=== PATIENT | female | born 1990 | race Hispanic/Latino ===

== ENCOUNTER → 2021-06-01 | Day surgery (SDC) | payer SELFPAY ==
[~2021-06-01] MED LIST: Acetaminophen 500 MG TAB ONE; Acetaminophen 500 MG TAB PO SCH; BAMLANIVIMAB 700 MG, ETESEVIMAB 700 MG/20 ML 1,400 MG in Sodium Chloride 0.9% 250 ML 25... IVPB SCH; diphenhydrAMINE 50 MG/ML VIAL IVP SCH; diphenhydrAMINE 50 MG/ML VIAL ONE
== END ==
LOC: CSHSDC/OP 11:10
PROVIDERS: ATTEND Emergency Medicine
DX: U07.1 COVID-19 (principal); Z23 Encounter for immunization
CPT/HCPCS: 96365; 96374; J1200; J7050; Q0245